=== PATIENT | female | born 1940 | race Caucasian/White ===

== ENCOUNTER 2017-04-16 00:40 | Day surgery (SDC) | payer MEDICARE, BC ==
[~2017-04-16] VITALS: Ht 165.1 cm; Wt 98.9 kg
[~2017-04-16 00:40] MED LIST: ALLO100T70 PO; ANAS1TAB35 PO; AZIT-1 PO; CALC600T72 PO; CEP500 PO; CHOL10005 PO; CHOL200022 PO; CHOL500045 PO; DAR100 PO; ERGO500014 PO; ERGO500037 PO; ESTR2TAB26 PO; EXE25PT PO; FLU45SYR25 IM ONLY; FUR40 PO; FURO-47 PO; IBUP1TAB90 PO; IBUP200C71 PO; IBUP200C72 PO; LETR2.5T4 PO; LEVO-85 PO; LEVO75TA73 PO; LOR5/325 PO; LORA-802 PO; LOSA100T67 PO; MULT-865 PO; MULTIVITAMIN; NAPR220C12 PO; OMEG-11 PO; PNEU0.5D3 IM; PRED-420 PO; PRED20TA6 PO; ROPI0.2527 PO; SPIR25TA78 PO; VALS160T20 PO; VENL37.514 PO; [UNRECOGNIZED DRUG - CODE] PO; [UNRECOGNIZED DRUG - CODE] PO
[2017-04-16] MEDS ORDERED: NORMOSOL R SOLN(*) 1000 ML BAG 1,000 ML IV PRN (12:00)
[2017-04-16] MEDS ORDERED: MIDAZOLAM 2 MG/2 ML VIAL IVP PRN (12:00)
[2017-04-16] MEDS ORDERED: FAMOTIDINE 20 MG TAB PO ONE (12:00)
[2017-04-16] MEDS ORDERED: LIDOCAINE/SOD BICARB 8.4% SYR ID ONE (12:00)
[2017-04-16] MEDS ORDERED: ROPIVACAINE 0.5% 20 ML VIAL ONE (14:20)
[2017-04-16] MEDS ORDERED: fentaNYL CITR 100 MCG/2 ML AMP ONE (14:58)
[2017-04-16] MEDS ORDERED: LIDOCAINE 2% IV 100 MG/5ML SYR ONE (14:59)
[2017-04-16] MEDS ORDERED: PROPOFOL EMUL(*) 10MG/ML 20 ML 20 ML ONE (14:59)
[2017-04-16 15:00] VITALS: BP 135/85
[2017-04-16] MEDS ORDERED: DEXAMETHASONE SOD 4 MG/ML VIAL ONE (16:09)
[2017-04-16] MEDS ORDERED: ONDANSETRON 4 MG/2 ML VIAL ONE (16:10)
--- NOTE | 2017-04-16 17:19 | EKG ---
FACILITY: [facility] PATIENT NAME: DAVID OSORIO : [id number] MR: [id number] V: [id number] EXAM DATE: ORDERING PHYSICIAN: SHAAN ORTIZ TECHNOLOGIST: Fernando Buckner Reason : PREOP Blood Pressure : / mmHG Vent. Rate : 087 BPM Atrial Rate : 087 BPM P-R Int : 156 ms QRS Dur : 092 ms QT Int : 360 ms P-R-T Axes : 033 -17 025 degrees QTc Int : 433 ms Normal sinus rhythm Septal infarct , age undetermined Inferior infarct , age undetermined Abnormal ECG When compared with ECG of 18-OCT-2015 08:27, [place] interval has decreased Inferior infarct is now present Confirmed by DELVIS MARCOS ([id number]) on 04/16/2017 8:00:57 PM Referred By: Confirmed By:DELVIS MARCOS
[2017-04-16] MEDS ORDERED: DOCU-416 PO (17:22)
[2017-04-16] MEDS ORDERED: OXYC-373 PO (17:22)
--- NOTE | 2017-04-16 17:27 | Short(Outpt) Discharge Summary ---
Discharge Summary Reason for Hosp/Final Diag: (1) Ganglion cyst of volar aspect of right wrist Status: Chronic Hospital Course & Plan: Right wrist ganglion cyst excised without problems. Departure Discharge to: Home, Self Care Discharge Instructions Home Meds Active Scripts Docusate Sodium (COLACE) 100 Mg Capsule, 1 CAP PO BID, #30 CAP 0 Refills TAKE WITH A FULL GLASS OF WATER Prov:SINAN ARREDONDO MD 04/16/17 Oxycodone Hcl/Acetaminophen (OXYCODONE-ACETAMINOPHEN 5-325) 1 Each Tablet, 1 TAB PO Q4H Y for PAIN, #15 TAB 0 Refills Prov:SINAN ARREDONDO MD 04/16/17 Losartan Potassium (LOSARTAN POTASSIUM) 100 Mg Tablet, 1 TAB PO QDAY, #90 TAB 3 Refills Prov:ANNAMARIE NEWTON MD 03/12/17 Anastrozole (ARIMIDEX) 1 Mg Tablet, 1 TAB PO QDAY, #30 TAB 9 Refills Prov:ANNAMARIE NEWTON MD 02/25/17 Allopurinol (ALLOPURINOL) 100 Mg Tablet, 1 TAB PO QDAY, #90 TAB 11 Refills Prov:ANNAMARIE NEWTON MD 09/14/16 Spironolactone (SPIRONOLACTONE) 25 Mg Tablet, 0.5 TAB PO QDAY, #30 TAB 3 Refills Prov:ANNAMARIE NEWTON MD 07/03/16 Levothyroxine Sodium (LEVOTHYROXINE SODIUM) 75 Mcg Tablet, 1 TAB PO QDAY, #90 TAB 3 Refills Prov:ANNAMARIE NEWTON MD 07/01/16 Ropinirole Hcl (REQUIP) 0.25 Mg Tablet, 1 TAB PO HS Y for restless leg symptoms , #90 TAB 4 Refills Prov:ANNAMARIE NEWTON MD 04/15/16 Reported Medications Ibuprofen/Diphenhydramine Cit (ADVIL PM CAPLET) 1 Each Tablet, 1 EACH PO QHS Y for PAIN 03/27/17 Naproxen Sodium (ALEVE) 220 Mg Capsule, 1 CAP PO QDAY, CAPSULE 03/27/17 Cholecalciferol (Vitamin D3) (VITAMIN D3) 3,000 Unit Tablet, 1 TAB PO QDAY 02/25/17 [place]-3 Fatty Acids/Fish Oil (FISH OIL 1,000 MG CAPSULE) 1 Each Capsule, 1 CAP PO QDAY 01/30/16 Furosemide (FUROSEMIDE) 40 Mg Tablet, 1 TAB PO DAILY Y for edema, TAB 03/30/14 Follow up Referrals: General Surgery - 05/04/17 @ Surgery, General with Sinan Arredondo Md You have a follow up appointment scheduled with Dr. Arredondo on 05/04/17, at 10:00am. Diet: Regular Activity: As Tolerated Special Instructions: Leave the right wrist splint on at all times other than while bathing. You can remove the brown wrap and the white surgical dressing on 04/18/17, then you can shower. After showering, leave the incision open to air but leave the steristrips in place until they fall off on their own and put the splint back on right away to immobilize your right wrist to minimize the chance of the ganglion cyst returning. Don't immerse the incision for 2 weeks. SINAN ARREDONDO MD Apr 16, 2017 17:27
--- NOTE | 2017-04-16 17:34 | Post Operative Progress Note ---
Post Operative Progress Note Date: Apr 16, 2017 Time: 17:27 Surgeon: Neeraj Dictation number: [id number] Anesthesia: LMA by Dr. Lopez Pre-Op Diagnosis: Right wrist ganglion cyst on volar aspect, radial side Post-Op Diagnosis: LARA Findings: C/W dx Procedure(s): Right wrist ganglion cyst excision Specimen Removed:(May be N/A): Right wrist ganglion cyst Complications: None Fluids: See anesthesia record Estimated Blood Loss: Minimal Date OP Note Dictated: Apr 16, 2017 Time OP Note Dictated: 17:28 SINAN ARREDONDO MD Apr 16, 2017 17:34
--- NOTE | 2017-04-16 19:41 | OPERATIVE REPORT 1 ---
EVENT DATE: April 16, 2017 SURGEON: Thom Pickard MD ANESTHESIOLOGIST: Thomas Lopez MD ANESTHESIA: LMA. PREOPERATIVE DIAGNOSIS Right volar wrist ganglion cyst. POSTOPERATIVE DIAGNOSIS Right volar wrist ganglion cyst. PROCEDURE PERFORMED Right volar wrist ganglion cyst excision. COMPLICATIONS None. CONDITION Stable. BLOOD LOSS Minimal. INDICATIONS This is a 76-year-old female who presented to my office with a lump on the volar aspect of her right wrist on the radial side. Exam was consistent with a ganglion cyst. We discussed options including observation versus aspiration versus steroid injection versus excision. After explaining the risks and benefits and risk of recurrence of each of these options, she elected to proceed with excision of the cyst. DESCRIPTION OF PROCEDURE The patient was brought to the operating room and placed supine on the operating table. LMA anesthesia was administered, and her right hand and arm were prepped and draped in a sterile fashion. A timeout was completed. I injected the skin overlying the cyst with 0.5% ropivacaine plain. I made a longitudinally oriented incision on the volar aspect of her wrist on the radial side just over the cyst and dissected through the dermis and into the subcutaneous tissues. I then continued my dissection mainly with scissors and identified the cyst and dissected completely around the cyst until I had the neck isolated. I then clamped the neck, used a knife to remove the cyst, and this was passed off the field. I then used a 3-0 Vicryl to ligate the neck without any problems. I did use the tourniquet during this procedure, and it was up for 14 minutes. After releasing the tourniquet, there was no bleeding. She had a good radial pulse, and the wound looked good. I then closed the wound with 3-0 Vicryl interrupted deep dermal sutures and 4-0 Monocryl running subcuticular sutures. The skin was cleaned and dried, and Steri-Strips were applied, followed by a sterile surgical dressing. Then, her wrist was wrapped in [place], and she was placed in a wrist splint. She was awakened, and LMA was removed. She was transported to the recovery room in stable condition having tolerated the procedure without any apparent problems. JEANNE
== END 2017-04-16 18:05 | disposition home or self-care (01) ==
LOC: OR 00:40
PROVIDERS: ATTEND Surgery
DX: M67.431 Ganglion, right wrist (principal); I10 Essential (primary) hypertension
CPT/HCPCS: 25111; 36415; 93005; A9270; J1100; J2001; J2405; J2704; J2795; J3010; 82310; 82374; 82435; 82565; 82947; 84132; 84295; 84520; 88304; L3908

== ENCOUNTER 2017-06-12 09:57 | Outpatient (RCR) | payer MEDICARE, BC ==
[2017-06-04 10:31] VITALS: BP 150/105
[2017-06-04 10:41] LABS: PLATELET COUNT, AUTOMATED 196 K/uL (150-450)
[~2017-06-12 09:57] MED LIST changes: +DOCU-416 PO; +OXYC-373 PO
[2017-06-12 10:02] VITALS: BP 157/78
--- NOTE | 2017-06-14 08:55 | [facility] ONCOLOGY NOTE ---
EVENT DATE: June 12, 2017 DIAGNOSES 1. Left breast cancer. 2. Hypothyroidism. 3. Hypertension. 4. Hyperlipidemia. 5. Gout. 6. Osteoarthritis. CHIEF COMPLAINT The patient is here today for followup of her left breast cancer. ONCOLOGY HISTORY The patient is a 76-year-old postmenopausal woman. PRESENTATION Abnormal screening mammogram. DIAGNOSTIC EVALUATION Ultrasound of the left breast done on September 19, 2015 did show 7.5 mm hypoechoic space-occupying lesion nearly at 10 o'clock position of the left breast. PROCEDURES 1. Ultrasound guided left breast mass biopsy done on September 25, 2015 came back positive for infiltrating ductal carcinoma, grade II/III. 2. Wire localization lumpectomy and left sentinel lymph node biopsy done October by Dr. Jauregui. PATHOLOGY Positive for 1 cm infiltrating ductal carcinoma, grade II/III with three negative sentinel lymph nodes. ER 99.5% positive, NV 99.1% positive, HER2/rhett negative by immunohistochemistry (1+). Ki-67 was low at 5.5%. p53 was also low at 0.8%. TREATMENT The patient started treatment with adjuvant hormonal therapy with letrozole 2.5 mg daily on November 09, 2015. The patient stopped letrozole in June 2006 because of side effects including severe pain in her small joints of the hands, and she started anastrozole 1 mg daily on July 14, 2016. The patient stopped anastrozole on June 12, 2017. HISTORY OF PRESENT ILLNESS Patient is here today for followup of her left breast cancer. She is complaining of stiffness in her joints all over and weight gain. She had also hot flashes. She is weak, tired and fatigued. PAST MEDICAL HISTORY 1. Hypertension. 2. Hyperlipidemia. 3. Osteoarthritis. 4. Gout. 5. Hypothyroidism. 6. Vitamin D deficiency. PAST SURGICAL HISTORY 1. In 1981 she had bilateral hysterectomy. 2. In 1991 she had back surgery. 3. In 1996 she had plantar fasciitis, right foot, surgery. 4. In 2005 she had left knee arthroplasty. 5. In October 2012, she had cataract, right eye. 6. In November 2012, she had cataract of left eye. 7. On October 05, 2015 she had ultrasound guided left breast biopsy. SOCIAL HISTORY The patient is with two sons. 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 She drinks wine and scotch occasionally. Denies any abuse of tobacco or illicit drugs. FAMILY HISTORY Negative for cancer or blood diseases. CURRENT MEDICATIONS 1. Advil at night for pain. 2. Losartan 100 mg in the morning. 3. Estradiol 2 mg in the morning. The patient was advised to quit. 4. Lasix 40 mg as needed. 5. Levothyroxine 75 mcg daily. 6. Spironolactone 25 mg half pill in the morning. 7. Tamoxifen 20 mg daily. 8. Vitamin D 5000 units daily. ALLERGIES SULFA, which causes hives. REVIEW OF SYSTEMS CONSTITUTIONAL: Patient has hot flashes. HEENT: Ears: No tinnitus or hearing problem. Nose: No nasal discharge or epistaxis. Throat: No sore throat or mouth ulcers. Eyes: No diplopia or visual changes. RESPIRATORY: No shortness of breath. No cough, expectoration or hemoptysis. CARDIOVASCULAR: No chest pain, orthopnea, or paroxysmal nocturnal dyspnea (PND) . No edema. No palpitations. GASTROINTESTINAL: No nausea or vomiting. No diarrhea or constipation. No change in bowel movements. No heartburn or swallowing difficulties. No abdominal pain. No jaundice. No hematemesis, melena or rectal bleeding. GENITOURINARY: No hematuria or dysuria. MUSCULOSKELETAL: She has stiffness all over her joints. NEUROLOGICAL: No tingling or numbness in the hands or feet. No headaches or convulsions. HEMATOLOGIC/LYMPHATIC: She is weak, tired and fatigued. SKIN: No skin rash or lumps. PSYCHIATRIC: No anxiety or depression. PHYSICAL EXAMINATION GENERAL: Looks stable. Well-developed, well-nourished, and in no acute distress. VITAL SIGNS: Blood pressure 157/78, pulse 75 per minute, respirations 16 per minute, temperature 97.2, pulse oximetry 93% on room air. HEENT: Head: Atraumatic. No sinus tenderness to palpation. Eyes: No icterus or conjunctivitis. Mouth and throat: No oral thrush or mucositis. NECK: Supple. No cervical or supraclavicular lymphadenopathy. LUNGS: Clear to auscultation and percussion bilaterally. HEART: Regular rate and rhythm. No gallops, murmurs, clicks or rubs. ABDOMEN: Soft and lax. No tenderness. No hepatosplenomegaly. No masses. EXTREMITIES: No cyanosis, clubbing or edema. LYMPHATICS: No peripheral lymphadenopathy. NEUROLOGICAL: Conscious, alert and oriented times three. No focal motor or sensory deficits. PSYCHIATRIC: Mood and affect appear normal. SKIN: No skin rash, bruise or purpuric eruption. DIAGNOSTIC/LABORATORY STUDIES CBC showed white count 4900, hemoglobin 15.4, hematocrit 46.3, platelets 196, 000. Chem panel totally normal. CEA is 3, which is normal. CA 15-3 is 45, CA 27-29 is 62.9, which is up from 59.4. ASSESSMENT 1. Stage IA (pT1 pN0 cM0) left breast infiltrating ductal carcinoma status post wide localization lumpectomy and left sentinel lymph node biopsy done October 19, 2015 for 1 cm invasive ductal carcinoma grade 2/3. Three sentinel lymph nodes were negative for metastasis. ER/NV positive, HER2/rhett negative by immunohistochemistry. Ki-67 was low at 5.5% and p53 was low at 0.8%. Patient started treatment with Letrozole November 09, 2015, which was stopped on June 12, 2016 because of the side effect of pain and stiffness in the small joints of the hands. Patient could not afford [employer] for co-payment and started treatment with anastrazole, Arimidex 1 mg daily July 14, 2016. Again she is complaining of stiffness all over her joints. She has also weight gain and hot flashes, and for this reason, Arimidex is stopped on June 12, 2017. I asked the patient to start Tamoxifen 20 mg daily in two weeks from now so the patient can get some relief from her joint stiffness and pain, so the patient will start Tamoxifen 20 mg daily on June 26, 2017. I am planning to see her in three months again with CBC, chem panel, CEA, CA 27-29 and CA 15-3. 2. Vitamin D deficiency. Patient currently on vitamin D supplement 3000 international units daily. Continue the same dose. 3. Osteopenia of the left femoral neck. Patient currently on calcium with vitamin D supplement. Will repeat her DEXA scan every two years. 4. Hypothyroidism with treatment. 5. Hypertension on treatment. 6. Gout on prednisone and colchicine. 7. Osteoarthritis. PLAN 1. Stop anastrazole. 2. Start Tamoxifen in two weeks, 20 mg daily. 3. Patient to return in three months with CBC, chem panel, CEA, CA 27-29 and CA 15-3. 4. Patient is to contact us for any new concerns or complaints. [facility]
[2017-06-15] MEDS ORDERED: IBUP1TAB90 PO (08:45)
[2017-06-26] MEDS ORDERED: TAMO20TA24 PO (10:55)
[2017-07-06] MEDS ORDERED: SPIR25TA78 PO (12:10)
== END 2017-07-08 15:04 | disposition home or self-care (01) ==
LOC: ONC 09:57
PROVIDERS: ATTEND Radiology Radiation Oncology
DX: C50.212 Malignant neoplasm of upper-inner quadrant of left female breast (principal); E55.9 Vitamin D deficiency, unspecified; M85.88 Other specified disorders of bone density and structure, other site; E03.9 Hypothyroidism, unspecified; I10 Essential (primary) hypertension; M10.9 Gout, unspecified; R53.1 Weakness; R53.83 Other fatigue; Z17.0 Estrogen receptor positive status [ER+]
CPT/HCPCS: 36415; 82306; 82378; 85025; 86300; G0463; 82040; 82247; 82310; 82374; 82435; 82565; 82947; 84075; 84132; 84155; 84295; 84450; 84460; 84520; 99212

== ENCOUNTER → 2017-06-30 | Outpatient (CLI) | payer MEDICARE, BC ==
[~2017-06-30] MED LIST changes: +TAMO20TA24 PO
--- NOTE | 2017-07-01 19:02 | RADIOLOGY IMAGING REPORT ---
FACILITY: [facility] PATIENT NAME: DAVID OSORIO : [id number] MR: [id number] V: [id number] EXAM DATE: ORDERING PHYSICIAN: ROSAMARIA PEREZ TECHNOLOGIST: Zaida Arcos EXAMINATION:TWO-DIMENSIONAL ECHOCARDIOGRAPH REASON: HEART MURMUR AND HYPERTENSION 2D Measurements (normal values in centimeters) LV endLV endRV endVent.LV PostAorticLeftPercent DiastolicSystolicDiastolicSeptumWallRootAtriumShortening (3.5-5.7)(0.9-2.6)(0.6-1.1)(0.6-1.1)(2.0-3.7)(1.9-4.0)(25-35%) [id number]% STROKE VOLUME: 40ml ESTIMATED EJECTION FRACTION: 70% PARASTERNAL LONG AXIS: Is somewhat technically difficult but overall left ventricular systolic function does appear to be normal. Color examination of the valves revealed a trace of mitral and aortic insufficiency in this view. No wall motion abnormalities are noted. Right ventricle appears to be mildly enlarged. Other chamber sizes are normal. PARASTERNAL SHORT AXIS: Very technically difficult echocardiograph the overall left ventricle systolic function appears to be normal. Aortic valve is probably trileaflet in configuration although it was hard to delineate the entire structure. Definity contrast was used and left ventricle systolic function is normal. APICAL FOUR AND TWO CHAMBER: There again technically difficult but Definity contrast was used. No wall motion abnormalities are noted. The overall left ventricle systolic function appears to be normal. Aortic valve area and mitral valve area both measure within normal ranges of 2.4 and 2.2cm2 respectively. The left atrial and right atrial volumes are measured within normal range of 27 and 13ml/m2. Tricuspid regurgitation Vmax measured 2.96m/sec with estimated right atrial pressure 3mm Hg. Doppler examination of the mitral valve in diastole does reveal the A wave > E wave. IVC is normal in size at 1.96cm. SUBCOSTAL VIEW: OVERALL IMPRESSION: 1. Normal left ventricular ejection fraction approximately 70% with a mild decrease in diastolic function. 2. Mild somewhat asymmetric left ventricular thickening more along the posterior wall but no evidence for any outflow tract obstruction. 3. A trileaflet aortic valve with a trace of aortic insufficiency. 4. A trace of mitral and tricuspid insufficiency. Estimated right ventricular systolic pressures are slightly increased at 38mm Hg which does include an estimated right atrial pressure of 3mm Hg indicating mild pulmonary hypertension and increased right ventricular systolic pressures. No other abnormalities were noted Dictated by: Raquel Smyth M.D. on 07/01/2017 at 10:25 Transcribed by: LAUREN on 07/01/2017 at 13:02 Approved by: Raquel Smyth M.D. on 07/01/2017 at 19:01 [facility]
== END ==
LOC: US 06-24 01:12
PROVIDERS: ATTEND Nurse Practitioner Primary Care
DX: I50.30 Unspecified diastolic (congestive) heart failure (principal); I51.7 Cardiomegaly; I35.1 Nonrheumatic aortic (valve) insufficiency; I34.0 Nonrheumatic mitral (valve) insufficiency; I07.1 Rheumatic tricuspid insufficiency; I27.20 Pulmonary hypertension, unspecified
CPT/HCPCS: 93306

== ENCOUNTER → 2017-09-14 | Outpatient (CLI) | payer MEDICARE, BC | LOC: SPU 10:49 | PROVIDERS: ATTEND Family Medicine | DX: E03.9 Hypothyroidism, unspecified (principal) | CPT/HCPCS: 84443 ==

== ENCOUNTER 2017-09-18 10:00 | Outpatient (RCR) | payer MEDICARE, BC ==
[2017-09-14 11:08] LABS: PLATELET COUNT, AUTOMATED 166 K/uL (150-450)
[2017-09-18 10:04] VITALS: BP 151/77
[2017-09-18] MEDS ORDERED: ACET500T68 PO (10:06)
--- NOTE | 2017-09-18 15:59 | ONCOLOGY FOLLOW UP NOTE ---
EVENT DATE: September 18, 2017 DIAGNOSES 1. Left breast cancer. 2. Hypothyroidism. 3. Hypertension. 4. Hyperlipidemia. 5. Gout. 6. Osteoarthritis. CHIEF COMPLAINT The patient is here today for followup of her left breast cancer. ONCOLOGY HISTORY The patient is a 76-year-old postmenopausal woman. PRESENTATION Abnormal screening mammogram. DIAGNOSTIC EVALUATION Ultrasound of the left breast done on September 19, 2015 did show 7.5 mm hypoechoic space-occupying lesion nearly at 10 o'clock position of the left breast. PROCEDURES 1. Ultrasound guided left breast mass biopsy done on September 25, 2015 came back positive for infiltrating ductal carcinoma, grade II/III. 2. Wire localization lumpectomy and left sentinel lymph node biopsy done October by Dr. Jauregui. PATHOLOGY Positive for 1 cm infiltrating ductal carcinoma, grade II/III with three negative sentinel lymph nodes. ER 99.5% positive, MA 99.1% positive, HER2/rhett negative by immunohistochemistry (1+). Ki-67 was low at 5.5%. p53 was also low at 0.8%. TREATMENT 1. The patient started treatment with adjuvant hormonal therapy with letrozole 2.5 mg daily on November 09, 2015. 2. The patient stopped letrozole in June 2006 because of side effects including severe pain in her small joints of the hands, and she started anastrozole 1 mg daily on July 14, 2016. The patient stopped anastrozole on June 12, 2017. 3. Patient started treatment with tamoxifen 20 mg daily on June 12, 2017. HISTORY OF PRESENT ILLNESS Patient is here today for followup of her left breast cancer on adjuvant hormonal therapy with tamoxifen. She is complaining of gaining weight after she started tamoxifen. She has generalized joint pains, especially the ankles and hands. She is weak and tired constantly. PAST MEDICAL HISTORY 1. Hypertension. 2. Hyperlipidemia. 3. Osteoarthritis. 4. Gout. 5. Hypothyroidism. 6. Vitamin D deficiency. PAST SURGICAL HISTORY 1. In 1981 she had bilateral hysterectomy. 2. In 1991 she had back surgery. 3. In 1996 she had plantar fasciitis, right foot, surgery. 4. In 2005 she had left knee arthroplasty. 5. In October 2012, she had cataract, right eye. 6. In November 2012, she had cataract of left eye. 7. On October 05, 2015 she had ultrasound guided left breast biopsy. SOCIAL HISTORY The patient is with two sons. 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 She drinks wine and scotch occasionally. Denies any abuse of tobacco or illicit drugs. FAMILY HISTORY Negative for cancer or blood diseases. CURRENT MEDICATIONS 1. Advil at night for pain. 2. Losartan 100 mg in the morning. 3. Estradiol 2 mg in the morning. The patient was advised to quit. 4. Lasix 40 mg as needed. 5. Levothyroxine 75 mcg daily. 6. Spironolactone 25 mg half pill in the morning. 7. Tamoxifen 20 mg daily. 8. Vitamin D 5000 units daily. ALLERGIES SULFA, which causes hives. REVIEW OF SYSTEMS CONSTITUTIONAL: She is gaining weight. HEENT: Ears: No tinnitus or hearing problem. Nose: No nasal discharge or epistaxis. Throat: No sore throat or mouth ulcers. Eyes: No diplopia or visual changes. RESPIRATORY: No shortness of breath. No cough, expectoration or hemoptysis. CARDIOVASCULAR: No chest pain, orthopnea, or paroxysmal nocturnal dyspnea (PND) . No edema. No palpitations. GASTROINTESTINAL: No nausea or vomiting. No diarrhea or constipation. No change in bowel movements. No heartburn or swallowing difficulties. No abdominal pain. No jaundice. No hematemesis, melena or rectal bleeding. GENITOURINARY: No hematuria or dysuria. MUSCULOSKELETAL: She has generalized arthritis, especially the ankles and hands. NEUROLOGICAL: No tingling or numbness in the hands or feet. No headaches or convulsions. HEMATOLOGIC/LYMPHATIC: She is weak, tired and fatigued most of the time. SKIN: No skin rash or lumps. PSYCHIATRIC: No anxiety or depression. PHYSICAL EXAMINATION GENERAL: Looks stable. Well-developed, well-nourished, and in no acute distress. VITAL SIGNS: Blood pressure 151/77, pulse 81 per minute, respirations 16 per minute, temperature 97.3, pulse oximetry 90% on room air. HEENT: Head: Atraumatic. No sinus tenderness to palpation. Eyes: No icterus or conjunctivitis. Mouth and throat: No oral thrush or mucositis. NECK: Supple. No cervical or supraclavicular lymphadenopathy. LUNGS: Clear to auscultation and percussion bilaterally. HEART: Regular rate and rhythm. No gallops, murmurs, clicks or rubs. ABDOMEN: Soft and lax. No tenderness. No hepatosplenomegaly. No masses. EXTREMITIES: No cyanosis, clubbing or edema. LYMPHATICS: No peripheral lymphadenopathy. NEUROLOGICAL: Conscious, alert and oriented times three. No focal motor or sensory deficits. PSYCHIATRIC: Mood and affect appear normal. SKIN: No skin rash, bruise or purpuric eruption. DIAGNOSTIC/LABORATORY STUDIES CBC showed white count 3.9, hemoglobin 15.1, hematocrit 44.3, platelets 166, 000. ANC is 1.6. Chem panel totally normal except carbon dioxide 21. CEA is 3.3. CA 15-3 is 43 which is down from 45, CA 27-29 is 48.9 which is down from 65.9. ASSESSMENT 1. Stage IA (pT1 pN0 cM0) left breast infiltrating ductal carcinoma status post wide localization lumpectomy and sentinel lymph node biopsy done October 19, 2015 for 1 cm invasive ductal carcinoma grade 2/3. Three sentinel lymph nodes were negative for metastasis. ER/MA positive, HER2/rhett negative by immunohistochemistry. Ki-67 was low at 5.5% and p53 was low at 0.8%. Patient started treatment with Letrozole November 09, 2015, which was stopped on June 12, 2016 because of the side effects of pain and stiffness in the small joints of the hands. Patient could not afford Aromasin for co-payment and started treatment with anastrazole, Arimidex 1 mg daily July 14, 2016. Again she complained of stiffness of all her joints. She also had weight gain and hot flashes, and for this reason, Arimidex was stopped on June 12, 2017. The patient started Tamoxifen 20 mg daily after that, and she is tolerating it better, but unfortunately she continues to gain weight and she started tamoxifen on June 26, 2017. Patient is followed by her primary care provider for weight gain, and she had a consultation with the dietitian and physical therapist. I am planning to continue followup. I will see her in three months with CBC, chem panel, CEA, CA 27-29 and CA 15-3. Her tumor markers with CA 15- 3 and CA 27-29 are going down, and I will continue to monitor them in the future. 2. Vitamin D deficiency. Patient currently on vitamin D supplement 3000 international units daily. Continue the same dose. 3. Osteopenia of the left femoral neck, currently on vitamin D supplement. Consider repeat DEXA scan every two years. 4. Hypothyroidism on treatment. 5. Hypertension on treatment. 6. Gout on prednisone and colchicine. 7. Osteoarthritis. PLAN 1. Continue tamoxifen 20 mg daily. 2. Patient to return in three months with CBC, chem panel, CEA, CA 27-29 and CA 15-3. 3. Patient is to contact us for any new concerns or complaints. MTDD
[2017-09-23] MEDS ORDERED: LEVO75TA73 PO (11:45)
== END 2017-09-22 10:14 | disposition home or self-care (01) ==
LOC: ONC 10:00
PROVIDERS: ATTEND Radiology Radiation Oncology
DX: C50.212 Malignant neoplasm of upper-inner quadrant of left female breast (principal); Z17.0 Estrogen receptor positive status [ER+]; Z78.0 Asymptomatic menopausal state; Z79.810 Long term (current) use of selective estrogen receptor modulators (SERMs); E55.9 Vitamin D deficiency, unspecified; M85.88 Other specified disorders of bone density and structure, other site; E03.9 Hypothyroidism, unspecified; I10 Essential (primary) hypertension; M10.9 Gout, unspecified; M19.90 Unspecified osteoarthritis, unspecified site; Z79.899 Other long term (current) drug therapy; R53.1 Weakness; R53.83 Other fatigue
CPT/HCPCS: 36415; 82378; 85025; 86300; G0463; 82040; 82247; 82310; 82374; 82435; 82565; 82947; 84075; 84132; 84155; 84295; 84443; 84450; 84460; 84520; 99212

== ENCOUNTER → 2017-10-13 | Outpatient (CLI) | payer MEDICARE, BC ==
[~2017-10-13] MED LIST changes: +ACET500T68 PO; +DICL100G39 TOP
--- NOTE | 2017-10-13 15:32 | RADIOLOGY IMAGING REPORT ---
FACILITY: [facility] PATIENT NAME: DAVID OSORIO : [id number] MR: [id number]: [id number] EXAM DATE: ORDERING PHYSICIAN: JAYSON HOLLIS TECHNOLOGIST: Tessie Rivas PROCEDURE:BILATERAL DIAGNOSTIC DIGITAL MAMMOGRAM WITH CAD ASSISTED INTERPRETATION & 3D TOMOSYNTHESIS COMPARISON:Prior mammograms 09/26/16, 03/27/16, 09/19/15, 09/13/15. INDICATIONS:hx Breast Cancer-less then 2 years ago FINDINGS: Moderately dense fibroglandular tissue is seen throughout the breasts. The parenchymal pattern has remained stable allowing for difference in mammographic technique & patient positioning. Area of postsurgical scaring in the upper medial Left breast is again seen from prior lumpectomy. There is no evidence of malignant appearing mass, malignant appearing calcifications or other secondary sign of malignancy in either breast. DIAGNOSTIC CATEGORY 2--BENIGN FINDING. RECOMMENDATIONS: ROUTINE MAMMOGRAM AND CLINICAL EVALUATION. IMPRESSION: BIRADS 2: Benign finding. No significant abnormality is seen at this time. Dictated by: Breanna Bhatti M.D. on 10/13/2017 at 14:25 Transcribed by: LAUREN on 10/13/2017 at 14:48 Approved by: Breanna Bhatti M.D. on 10/13/2017 at 15:31 [facility]
== END ==
LOC: MAMO 01:13
PROVIDERS: ATTEND Family Medicine
DX: Z85.3 Personal history of malignant neoplasm of breast (principal)
CPT/HCPCS: 77062; 77066

== ENCOUNTER 2017-11-26 10:30 | Outpatient (RCR) | payer MEDICARE, BC ==
--- NOTE | 2017-09-09 15:52 | PT INITIAL EVALUATION ---
MEDICAL DIAGNOSIS: Right Shoulder Pain, Bilateral Ankle Pain TREATMENT DIAGNOSIS: Right Shoulder Subscapularis Strain, Bilateral Ankle Pain DATE OF ONSET: 09/09/17 SUBJECTIVE: Funmi is a 76 year old female presenting to physical therapy following gradual onset of R shoulder pain following 2016. Pt reports that the shoulder was getting better for a bit but recently with increased lifting it seems to be worse again. Pt reports that pain is worst at 7 /10 with sharp pain on the anterior shoulder shooting into the deltoid region. Pain is worse with pushing, lifting anything heavy and with abduction. Shoulder pain at rest is rated as 0/10, but pt reports that it does get achy at night at 4-5/10 and can keep her awake. Additionally, pt reports a longterm history of ankle pain related to arthritis. Pt reports that the ankles really hurt following prolonged walking such as shopping. Pain in the ankle is 0/10 at rest currently. REHAB PROBLEM LIST: Increased Pain Decreased ROM Decreased Strength Decreased Endurance Decreased Function Decreased ADL's Decreased Mobility Decreased Gait PREVIOUS MEDICAL HISTORY: See EMR OCCUPATION: Homemaker OBJECTIVE: Pt is L handed ROM: Ankle AROM: Painful in end ranges Shoulder AROM: Flexion: L 126, R 98, Abd: L 145, R 92 with pain, ER: L 80, R 55 with pain, IR: L T6, R L2 level with pain. Strength: Shoulder MMT: 5/5 B in all motions excluding R IR at 4/5 with pain. Palpation: Pt is tender to palpation along the anterior shoulder supraspinatus tendon. Sensation: Pt denies any change in sensation in the R arm. Special Tests: Empty Can, IR lift off, Drop arm (-), Painful Arc (+) Other Objective Findings: Quick DASH disability score: 36% ASSESSMENT: Funmi show signs and symptoms consistent with R shoulder subscapularis strain, and generalized ankle arthritis bilaterally as outlined in the above deficits resulting in decreased mobility and function with ADL's. Physical therapy is indicated for this patient to return pt to prior level of function with improved mobility in ADL's and recreational activities. Short Term Goals In 3 weeks pt will increase AROM to equal to that of the contralateral shoulder for improved mobility with ADL's. In 6 weeks pt will improve ankle strength to 5/5 B in all major planes for improved support with ambulation. In 6 weeks pt will increase IR strength to 5/5 without pain for improved function with ADL's. In 6 weeks pt will improve Quick DASH score to < 19% impairment for improved function with ADL's. Patient's Goals Decrease shoulder pain and improve function with lifting and pushing. Decrease ankle pain with walking. PLAN: Patient to be seen for Manual Therapy/STM/MET Strengthening/condition Ice/Heat Range of Motion Spinal Stabilization Ultrasound Stretching Iontophoresis Neuromuscular Re-ed Closed Chain Program Electrical Stim Posture/Body mechanics Gait Trg/Balance Trg Biofeedback Home Exercise Program Mech./Manual Traction Therapeutic Activities Pelvic Floor 3x/Week for 6 Weeks If you have any questions, comments, or concerns about this report or plan, please contact me at . Thank you, Keisha Lorenz, PT, DPT, CLT MTDD
--- NOTE | 2017-10-30 16:53 | PT PLAN OF CARE ---
Physician: Shamika Clark MD Patient is being seen: 2-3x/Week Therapist: Keisha Lorenz, PT, DPT, CLT Medical Diagnosis: Right Shoulder Pain, Bilateral Ankle Pain Treatment Diagnosis: Right Shoulder Subscapularis Strain, Bilateral Ankle Pain Date of Onset: 09/09/17 Date of Initial Evaluation: 09/09/17 Date patient was last seen: 10/29/17 Number of treatments: 10 Number of cancellations/No shows: 2 INTERVENTIONS: Manual Therapy/STM/MET Strengthening/condition Ice/Heat Range of Motion Spinal Stabilization Ultrasound Stretching Iontophoresis Neuromuscular Re-ed Closed Chain Program Electrical Stim Posture/Body mechanics Gait Trg/Balance Trg Biofeedback Home Exercise Program Mech./Manual Traction Therapeutic Activities Pelvic Floor GOALS: In 3 weeks pt will increase AROM to equal to that of the contralateral shoulder for improved mobility with ADL's. In Progress In 6 weeks pt will improve ankle strength to 5/5 B in all major planes for improved support with ambulation. In Progress In 6 weeks pt will increase IR strength to 5/5 without pain for improved function with ADL's. In Progress In 6 weeks pt will improve QuickDASH score to < 19% impairment for improved function with ADL's. In Progress PATIENT'S GOAL: Decrease shoulder pain and improve function with lifting and pushing. Decrease ankle pain with walking. Status of Patient's Goals: In Progress Patient Compliance: Good Prognosis: Good Reasons for continuing therapy: Pat shows increase functional strength and mobility with pt able to perform increased community ambulation without pain in the ankle for up to 1.5 miles. Painful arc persists in the R shoulder. However, ROM prior to pain shows improvements and pt shows improved strength in all planes. Further PT is indicated to improve pt stability with ambulation on uneven surfaces as well as further improve R shoulder ROM and strength without pain. OBJECTIVE: Pt is L handed ROM: Ankle AROM: Painful in end ranges Shoulder AROM: Flexion: L 126, R 114, Abd: L 145, R 98 with pain, ER: L 80, R 75 with pain, IR: L T6, R L2 level with pain. Strength: Shoulder MMT: 5/5 B in all motions excluding R IR and flexion at 4+/5. Ankle MMT: PF 4/5 B, DF 5/5 B Palpation: Pt is tender to palpation along the anterior shoulder supraspinatus tendon. Sensation: Pt denies any change in sensation in the R arm. Special Tests: Empty Can, IR lift off, Drop arm (-), Painful Arc (+) Other Objective Findings: Quick DASH disability score: 27.3% If you have any questions or concerns, please feel free to contact me at [phone]. Thank you, Keisha Lorenz, PT, DPT, CLT MTDD
[~2017-11-26 10:30] MED LIST changes: +ANAS1TAB12 PO; -ANAS1TAB35 PO; +IBUP-136 PO; -IBUP200C71 PO; -SPIR25TA78 PO; +SPIR25TA80 PO
== END 2017-12-08 ==
LOC: PT 10:30
PROVIDERS: ATTEND Family Medicine
DX: M25.511 Pain in right shoulder (principal); M25.571 Pain in right ankle and joints of right foot; M25.572 Pain in left ankle and joints of left foot
CPT/HCPCS: 97162

== ENCOUNTER 2017-12-24 10:29 | Outpatient (RCR) | payer MEDICARE, BC ==
[2017-12-16 10:17] VITALS: BP 135/116
[2017-12-16 10:42] LABS: PLATELET COUNT, AUTOMATED 185 K/uL (150-450)
[2017-12-18 10:06] VITALS: BP 163/86
--- NOTE | 2017-12-18 17:06 | ONCOLOGY FOLLOW UP NOTE ---
EVENT DATE: December 18, 2017 DIAGNOSES 1. Left breast cancer. 2. Hypothyroidism. 3. Hypertension. 4. Hyperlipidemia. 5. Gout. 6. Osteoarthritis. CHIEF COMPLAINT The patient is here today for followup of her left breast cancer. ONCOLOGY HISTORY The patient is a 77-year-old postmenopausal woman. PRESENTATION Abnormal screening mammogram. DIAGNOSTIC EVALUATION Ultrasound of the left breast done on September 19, 2015 did show 7.5 mm hypoechoic space-occupying lesion nearly at 10 o'clock position of the left breast. PROCEDURES 1. Ultrasound guided left breast mass biopsy done on September 25, 2015 came back positive for infiltrating ductal carcinoma, grade II/III. 2. Wire localization lumpectomy and left sentinel lymph node biopsy done October 19, [address] Jauregui. PATHOLOGY Positive for 1 cm infiltrating ductal carcinoma, grade II/III with three negative sentinel lymph nodes. ER 99.5% positive, MA 99.1% positive, HER2/rhett negative by immunohistochemistry (1+). Ki-67 was low at 5.5%. p53 was also low at 0.8%. TREATMENT 1. The patient started treatment with adjuvant hormonal therapy with letrozole 2.5 mg daily on November 09, 2015. 2. The patient stopped letrozole in June 2006 because of side effects including severe pain in her small joints of the hands, and she started anastrozole 1 mg daily on July 14, 2016. The patient stopped anastrozole on June 12, 2017. 3. Patient started treatment with tamoxifen 20 mg daily on June 12, 2017. HISTORY OF PRESENT ILLNESS Patient is here today for followup of her left breast cancer. She is complaining of hot flashes. She has also generalized joint aches all over her body, but other than that she is really feeling very well in herself. PAST MEDICAL HISTORY 1. Hypertension. 2. Hyperlipidemia. 3. Osteoarthritis. 4. Gout. 5. Hypothyroidism. 6. Vitamin D deficiency. PAST SURGICAL HISTORY 1. In 1981 she had bilateral hysterectomy. 2. In 1991 she had back surgery. 3. In 1996 she had plantar fasciitis, right foot, surgery. 4. In 2005 she had left knee arthroplasty. 5. In October 2012, she had cataract, right eye. 6. In November 2012, she had cataract of left eye. 7. On October 05, 2015 she had ultrasound guided left breast biopsy. SOCIAL HISTORY The patient is with two sons. 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 She drinks wine and scotch occasionally. Denies any abuse of tobacco or illicit drugs. FAMILY HISTORY Negative for cancer or blood diseases. CURRENT MEDICATIONS 1. Advil at night for pain. 2. Losartan 100 mg in the morning. 3. Estradiol 2 mg in the morning. The patient was advised to quit. 4. Lasix 40 mg as needed. 5. Levothyroxine 75 mcg daily. 6. Spironolactone 25 mg half pill in the morning. 7. Tamoxifen 20 mg daily. 8. Vitamin D 5000 units daily. ALLERGIES SULFA, which causes hives. REVIEW OF SYSTEMS CONSTITUTIONAL: She has hot flashes. HEENT: Ears: No tinnitus or hearing problem. Nose: No nasal discharge or epistaxis. Throat: No sore throat or mouth ulcers. Eyes: No diplopia or visual changes. RESPIRATORY: No shortness of breath. No cough, expectoration or hemoptysis. CARDIOVASCULAR: No chest pain, orthopnea, or paroxysmal nocturnal dyspnea (PND). No edema. No palpitations. GASTROINTESTINAL: No nausea or vomiting. No diarrhea or constipation. No change in bowel movements. No heartburn or swallowing difficulties. No abdominal pain. No jaundice. No hematemesis, melena or rectal bleeding. GENITOURINARY: No hematuria or dysuria. MUSCULOSKELETAL: She has generalized joint aches all over her body. NEUROLOGICAL: No tingling or numbness in the hands or feet. No headaches or convulsions. HEMATOLOGIC/LYMPHATIC: She is weak, tired and fatigued most of the time. SKIN: No skin rash or lumps. PSYCHIATRIC: No anxiety or depression. PHYSICAL EXAMINATION GENERAL: Looks stable. Well-developed, well-nourished, and in no acute distress. VITAL SIGNS: Blood pressure 163/86, pulse 75 per minute, respirations 18 per minute, temperature 96.8, pulse oximetry 90% on room air. HEENT: Head: Atraumatic. No sinus tenderness to palpation. Eyes: No icterus or conjunctivitis. Mouth and throat: No oral thrush or mucositis. NECK: Supple. No cervical or supraclavicular lymphadenopathy. LUNGS: Clear to auscultation and percussion bilaterally. HEART: Regular rate and rhythm. No gallops, murmurs, clicks or rubs. ABDOMEN: Soft and lax. No tenderness. No hepatosplenomegaly. No masses. EXTREMITIES: No cyanosis, clubbing or edema. LYMPHATICS: No peripheral lymphadenopathy. NEUROLOGICAL: Conscious, alert and oriented times three. No focal motor or sensory deficits. PSYCHIATRIC: Mood and affect appear normal. SKIN: No skin rash, bruise or purpuric eruption. DIAGNOSTIC/LABORATORY STUDIES A mammogram on October 13, 2017 was benign. CBC showed white count 4.4, hemoglobin 16, hematocrit 48.3 and platelet count 185,000. Chem panel normal. CEA is 3.2, which is down from 3.3. CA 15-3 is 54, up from 43, and CA 27-29 is 63.7, up from 48.9. ASSESSMENT 1. Stage IA (pT1 pN0 cM0) left breast infiltrating ductal carcinoma status post wide localization lumpectomy and sentinel lymph node biopsy done October 19, 2015 for 1 cm invasive ductal carcinoma grade 2/3. Three sentinel lymph nodes were negative for metastasis. ER/MA positive, HER2/rhett negative by immunohistochemistry. Ki-67 was low at 5.5% and p53 was low at 0.8%. Patient started treatment with Letrozole November 09, 2015, which was stopped on June 12, 2016 because of the side effects with pain and stiffness in the small joints of the hands. Patient could not afford Aromasin for co-payment and started treatment with anastrazole, Arimidex 1 mg daily July 14, 2016. Again she had stiffness on all her joints. She also had weight gain and hot flashes, and for this reason, Arimidex was stopped on June 12, 2017. The patient started Tamoxifen 20 mg daily after that, and she is tolerating tamoxifen better, but she cntsn to have weight gain. Patient started tamoxifen June 26, 2017. Her tumor marker with CA 27-29 and CA 15-3 showed rising lately. Her CA 15-3 increased from 43 to 54 and CA 27-29 increased from 48.9 to 63.7. I am planning to do a restaging workup, so I am planning to get an MRI of the brain with and without contrast and PET CT scan for further evaluation. I am planning to see the patient in a week, and further evaluation and management will depend on the results of those scans. If the scans are negative for recurrent disease, then we are going to monitor the markers again in three months from now. 2. Vitamin D deficiency. Patient currently on vitamin D supplement 3000 units daily. Continue the same dose. 3. Osteopenia of the left femoral neck, currently on vitamin D supplement. Consider repeat DEXA scan every two years. 4. Hypothyroidism, on treatment. 5. Hypertension, on treatment. 6. Gout, on prednisone and colchicine. 7. Osteoarthritis. PLAN 1. Continue tamoxifen 20 mg daily. 2. PET/CT scan. 3. MRI of the brain with and without contrast. 4. Patient to return in one week for further evaluation and management. 5. Patient is to contact us for any new concern or complaints. JAD
[~2017-12-24 10:29] MED LIST changes: +CHOL200018 PO; -CHOL200022 PO; +GADOBENATE 529MG/1ML 15ML VIAL IVP ONE; -LOSA100T67 PO; +LOSA100T69 PO; +TRAZ50TA34 PO
[2017-12-24 10:37] VITALS: BP 168/87
--- NOTE | 2017-12-24 16:15 | ONCOLOGY FOLLOW UP NOTE ---
EVENT DATE: December 24, 2017 DIAGNOSES 1. Left breast cancer. 2. Hypothyroidism. 3. Hypertension. 4. Hyperlipidemia. 5. Gout. 6. Osteoarthritis. CHIEF COMPLAINT The patient is here today for followup of her left breast cancer. ONCOLOGY HISTORY The patient is a 77-year-old postmenopausal woman. PRESENTATION Abnormal screening mammogram. DIAGNOSTIC EVALUATION Ultrasound of the left breast done on September 19, 2015 did show 7.5 mm hypoechoic space-occupying lesion nearly at 10 o'clock position of the left breast. PROCEDURES 1. Ultrasound guided left breast mass biopsy done on September 25, 2015 came back positive for infiltrating ductal carcinoma, grade II/III. 2. Wire localization lumpectomy and left sentinel lymph node biopsy done October 19, [address] Jauregui. PATHOLOGY Positive for 1 cm infiltrating ductal carcinoma, grade II/III with three negative sentinel lymph nodes. ER 99.5% positive, [place] 99.1% positive, HER2/rhett negative by immunohistochemistry (1+). Ki-67 was low at 5.5%. p53 was also low at 0.8%. TREATMENT 1. The patient started treatment with adjuvant hormonal therapy with letrozole 2.5 mg daily on November 09, 2015. 2. The patient stopped letrozole in June 2006 because of side effects including severe pain in her small joints of the hands, and she started anastrozole 1 mg daily on July 14, 2016. The patient stopped anastrozole on June 12, 2017. 3. Patient started treatment with tamoxifen 20 mg daily on June 12, 2017. HISTORY OF PRESENT ILLNESS Patient is here today for followup of her left breast cancer. She is complaining of generalized arthritis, especially of the ankles and shoulders, and weakness and fatigue, but other than that she is doing fine. She is here today to discuss the results of the re-staging, because of the rise of her tumor markers, with CA 27-29 and CA 15-3. PAST MEDICAL HISTORY 1. Hypertension. 2. Hyperlipidemia. 3. Osteoarthritis. 4. Gout. 5. Hypothyroidism. 6. Vitamin D deficiency. PAST SURGICAL HISTORY 1. In 1981 she had bilateral hysterectomy. 2. In 1991 she had back surgery. 3. In 1996 she had plantar fasciitis, right foot, surgery. 4. In 2005 she had left knee arthroplasty. 5. In October 2012, she had cataract, right eye. 6. In November 2012, she had cataract of left eye. 7. On October 05, 2015 she had ultrasound guided left breast biopsy. SOCIAL HISTORY The patient is with two sons. 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 She drinks wine and scotch occasionally. Denies any abuse of tobacco or illicit drugs. FAMILY HISTORY Negative for cancer or blood diseases. CURRENT MEDICATIONS 1. Advil at night for pain. 2. Losartan 100 mg in the morning. 3. Estradiol 2 mg in the morning. The patient was advised to quit. 4. Lasix 40 mg as needed. 5. Levothyroxine 75 mcg daily. 6. Spironolactone 25 mg half pill in the morning. 7. Tamoxifen 20 mg daily. 8. Vitamin D 5000 units daily. ALLERGIES SULFA, which causes hives. REVIEW OF SYSTEMS CONSTITUTIONAL: No appetite or weight change. No fever, chills or sweating. No recent infection. HEENT: Ears: No tinnitus or hearing problem. Nose: No nasal discharge or epistaxis. Throat: No sore throat or mouth ulcers. Eyes: No diplopia or visual changes. RESPIRATORY: No shortness of breath. No cough, expectoration or hemoptysis. CARDIOVASCULAR: No chest pain, orthopnea, or paroxysmal nocturnal dyspnea (PND). No edema. No palpitations. GASTROINTESTINAL: No nausea or vomiting. No diarrhea or constipation. No change in bowel movements. No heartburn or swallowing difficulties. No abdominal pain. No jaundice. No hematemesis, melena or rectal bleeding. GENITOURINARY: No hematuria or dysuria. MUSCULOSKELETAL: She has generalized arthritis, especially in the ankles and shoulders. NEUROLOGICAL: No tingling or numbness in the hands or feet. No headaches or convulsions. HEMATOLOGIC/LYMPHATIC: She is weak, tired and fatigued. SKIN: No skin rash or lumps. PSYCHIATRIC: No anxiety or depression. PHYSICAL EXAMINATION GENERAL: Looks stable. Well-developed, well-nourished, and in no acute distress. VITAL SIGNS: Blood pressure 168/87, pulse 73 per minute, respirations 18 per minute, temperature 96.9, pulse oximetry 94% on room air. HEENT: Head: Atraumatic. No sinus tenderness to palpation. Eyes: No icterus or conjunctivitis. Mouth and throat: No oral thrush or mucositis. NECK: Supple. No cervical or supraclavicular lymphadenopathy. LUNGS: Clear to auscultation and percussion bilaterally. HEART: Regular rate and rhythm. No gallops, murmurs, clicks or rubs. ABDOMEN: Soft and lax. No tenderness. No hepatosplenomegaly. No masses. EXTREMITIES: No cyanosis, clubbing or edema. LYMPHATICS: No peripheral lymphadenopathy. NEUROLOGICAL: Conscious, alert and oriented times three. No focal motor or sensory deficits. PSYCHIATRIC: Mood and affect appear normal. SKIN: No skin rash, bruise or purpuric eruption. 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 A PET CT scan, done on December 23, 2017 showed resolving post-treatment activity in the left breast. No evidence of local recurrent disease or metastatic disease ASSESSMENT 1. Stage IA (pT1 pN0 cM0) left breast infiltrating ductal carcinoma status post wide localization lumpectomy and sentinel lymph node biopsy done October 19, 2015 for 1 cm invasive ductal carcinoma grade 2/3. [place] lymph nodes were negative for metastasis. ER/NJ positive, HER2/rhett negative by immunohistochemistry. Ki-67 was low at 5.5% and p53 was low at 0.8%. Patient started treatment with Letrozole November 09, 2015, which was stopped on June 12, 2016 because of the side effects with pain and stiffness in the small joints of the hands. Patient could not afford Aromasin for co-payment and started treatment with anastrazole, Arimidex 1 mg daily July 14, 2016. Again she had stiffness in all her joints. She also had weight gain and hot flashes, and the patient stopped Arimidex June 12, 2017. She started Tamoxifen 20 mg daily after that, and she is tolerating tamoxifen better. Patient started tamoxifen June 26, 2017. Her tumor marker with CA 27-29 and CA 15-3 showed mild rise lately. Her CA 15-3 increased from 43 to 54 and CA 27-29 increased from 48.9 to 63.7. MRI of brain December 22, 2017 showed a focus of 1.2 cm in the left frontal area, but it is thought to be due to a vague enhancement, likely due to a venous anomaly or capillary telangiectasia other than metastasis, given that this abnormality was there on her previous scan in 2008. PET CT scan done on December 23, 2017 did not show any evidence of local, regional or systemic recurrence. I am planning to continue followup. I will continue tamoxifen 20 mg daily, and I will see her in three months with CBC, chem panel, CA 27-29 and CA 15-3. 2. Vitamin D deficiency, on vitamin D supplement 3000 units daily. 3. Osteopenia of the left femoral neck, currently on vitamin D supplement. Consider repeat DEXA scan every two years. 4. Hypothyroidism, on treatment. 5. Hypertension, on treatment. 6. Gout, on prednisone and colchicine. 7. Osteoarthritis. PLAN 1. Continue tamoxifen 20 mg daily. 2. Patient to return in three months with CBC, chem panel, CA 27-29, CA 15-3. 3. Patient is to contact us for any new concern or complaints. MTDD
[2018-01-19] MEDS ORDERED: TRAZ50TA34 PO (11:00)
[2018-02-15] MEDS ORDERED: FLU180SY11 IM (14:39)
== END 2018-03-16 ==
LOC: ONC 10:29
PROVIDERS: ATTEND Internal Medicine Hematology
DX: C50.212 Malignant neoplasm of upper-inner quadrant of left female breast (principal); E03.9 Hypothyroidism, unspecified; I10 Essential (primary) hypertension; E78.5 Hyperlipidemia, unspecified; M10.9 Gout, unspecified; M19.90 Unspecified osteoarthritis, unspecified site; R53.83 Other fatigue; R53.1 Weakness; Z79.899 Other long term (current) drug therapy; Z79.810 Long term (current) use of selective estrogen receptor modulators (SERMs)
CPT/HCPCS: 36415; 82378; 85025; 86300; G0463; 82040; 82247; 82310; 82374; 82435; 82565; 82947; 84075; 84132; 84155; 84295; 84450; 84460; 84520; 99212; A9577

== ENCOUNTER 2018-02-16 12:30 | Outpatient (RCR) | payer MEDICARE, BC ==
[2016-06-20 10:02] VITALS: BP 137/82
[~2018-02-16 12:30] MED LIST changes: +FLU180SY11 IM; -GADOBENATE 529MG/1ML 15ML VIAL IVP ONE; -LOSA100T69 PO; +LOSA100T75 PO
--- NOTE | 2018-02-16 22:16 | ONCOLOGY FOLLOW UP NOTE ---
EVENT DATE: February 16, 2018 REASON FOR VISIT Oncology surveillance clinical update. ONCOLOGY HISTORY 1. Pathologic T1b N0 M0, ER and WI receptor positive, left-sided breast carcinoma. Tumor was HER2 negative. Patient treated with a lumpectomy and sentinel lymph node biopsy on 10/19/15. 2. Patient completed external beam radiation therapy for breast conservation 01/11/16. 3. Patient initially started on Femara, then anastrozole. These were discontinued in favor of tamoxifen, which the patient is presently taking as instructed by Dr. Najera. 4. Elevation of the CA27.29 tumor marker 12/2017. A full negative workup including a PET/CT scan and MRI scan of the brain. INTERVAL HISTORY Patient was seen back in the Oncology Clinic to establish care with myself. She previously was seen by Dr. Javier. She asked if I would review her radiographic studies, and I was happy to do so on the computer monitor. Clinically, she is doing well. Denies any headaches or bone pain. No breast pain or discomfort. The patient had blood work back in December including a CBC and metabolic panel which were completely normal. She had an elevation of the CA27.29 marker at 63 with a CEA of 3.2 that may have been a false positive result as the radiographic workup was negative for any signs of tumor recurrence at that time. Dr. Najera is seeing the patient every three months. She has changed primary care to Dr. Shamika Clark. Both she and her are seeing Dr. Clark every three months roughly. She also sees Dr. Najera at that interval. Patient had a mammogram earlier this year in October. I reviewed that study and the prior studies as well, and there are no suspicious findings. Patient denies any hot flashes from the tamoxifen. She did notice initial weight gain, but that has stabilized. PAST MEDICAL HISTORY 1. Breast cancer. 2. Hypertension. 3. Hypothyroidism. 4. Osteoarthritis. 5. Gout. SURGICAL HISTORY 1. Left breast biopsy. 2. Prior spine surgery in 1991. 3. Cataract surgery. 4. Left knee arthroplasty. 5. Prior hysterectomy with ovaries left in place in 1981. SOCIAL HISTORY . Retired land surveying survey worker. She and her are in the [employer] and [employer] business. MEDICATIONS 1. Tamoxifen 20 mg a day. 2. Losartan 100 mg q.a.m. 3. Lasix 40 mg a day. 4. Levothyroxine 75 mcg q. day. 5. Spironolactone 25 mg q. day. ALLERGIES SULFA (hives). REVIEW OF SYSTEMS Denies any headaches. No cardiovascular complaints at this time. Minor fatigue. No respiratory complaints, muscle pain, or tenderness. No GI complaints. PHYSICAL EXAMINATION GENERAL: Pleasant, 77-year-old female with medium, slightly large build. VITAL SIGNS: Weight 228. BP is 127/80, pulse 79, O2 sat 93%. LUNGS: Clear bilaterally. No lymphadenopathy. BREASTS: Large pendulous breasts bilaterally. No suspicious findings on careful palpation of the right breast or the left breast. The surgical incision is well healed. Excellent cosmetic result. ABDOMEN: No gross organomegaly. NEUROLOGIC: Grossly intact. IMPRESSION AND PLAN This is a pleasant, 77-year-old female with a history of a grade 2 invasive ductal carcinoma of the left breast measuring approximately 1 cm. Tumor was strongly receptor positive, and patient was appropriately placed on tamoxifen after lumpectomy and radiotherapy. I believe she started the latter treatment in June. No signs of tumor recurrence on clinical exam or radiographic studies to date. Patient will continue to see Medical Oncology every three months, and I will see her once a year in this clinic. I told her I would typically align my visits with her mammogram date, which will be next October. I also told her that I could release her to the other providers at this time, but she feels more comfortable with two oncologists following her at least for now. All questions answered to her satisfaction over a 45-minute appointment. Greater than 35 minutes spent [id number] with patient. JEANNE
== END 2018-03-10 12:42 | disposition home or self-care (01) ==
LOC: RAON 12:30
PROVIDERS: ATTEND Nurse Practitioner Family
DX: C50.912 Malignant neoplasm of unspecified site of left female breast (principal); Z17.0 Estrogen receptor positive status [ER+]; Z92.3 Personal history of irradiation; Z79.810 Long term (current) use of selective estrogen receptor modulators (SERMs); Z79.899 Other long term (current) drug therapy
CPT/HCPCS: 99212

== ENCOUNTER 2018-03-02 10:30 | Outpatient (RCR) | payer MEDICARE, BC ==
--- NOTE | 2017-12-09 15:19 | PT PLAN OF CARE ---
Physician: Shamika Clark MD Patient is being seen: 2-3x/Week Therapist: Keisha Lorenz, PT, DPT, CLT Medical Diagnosis: Right Shoulder Pain, Bilateral Ankle Pain Treatment Diagnosis: Right Shoulder Subscapularis Strain, Bilateral Ankle Pain Date of Onset: 09/09/17 Date of Initial Evaluation: 09/09/17 Date patient was last seen: 12/09/17 Number of treatments: 16 Number of cancellations/No shows: 7 INTERVENTIONS: Manual Therapy/STM/MET Strengthening/condition Ice/Heat Range of Motion Spinal Stabilization Ultrasound Stretching Iontophoresis Neuromuscular Re-ed Closed Chain Program Electrical Stim Posture/Body mechanics Gait Trg/Balance Trg Biofeedback Home Exercise Program Mech./Manual Traction Therapeutic Activities Pelvic Floor GOALS: In 3 weeks pt will increase AROM to equal to that of the contralateral shoulder for improved mobility with ADL's. In Progress In 6 weeks pt will improve ankle strength to 5/5 B in all major planes for improved support with ambulation. In Progress In 6 weeks pt will increase IR strength to 5/5 without pain for improved function with ADL's. In Progress In 6 weeks pt will improve QuickDASH score to <19% impairment for improved function with ADL's. In Progress PATIENT'S GOAL: Decrease shoulder pain and improve function with lifting and pushing. Decrease ankle pain with walking. Status of Patient's Goals: In Progress Patient Compliance: Good Prognosis: Good Reasons for continuing therapy: Pat shows increase functional strength and mobility with pt able to perform increased community ambulation without pain in the ankle for up to 1.5 miles. Painful arc persists in the R shoulder. However, ROM prior to pain shows improvements and pt shows improved strength in all planes. Further PT is indicated to improve pt stability with ambulation on uneven surfaces as well as further improve R shoulder ROM and strength without pain. OBJECTIVE: Pt is L handed ROM: Ankle AROM: Painful in end ranges Shoulder AROM: Flexion: L 126, R 114, Abd: L 145, R 98 with pain, ER: L 80, R 75 with pain, IR: L T6, R L2 level with pain. Strength: Shoulder MMT: 5/5 B in all motions excluding R IR at 4/5 Ankle MMT: PF: R 4+/5, L 4/5, DF: 5/5 B Palpation: Pt is tender to palpation along the anterior shoulder supraspinatus tendon. Sensation: Pt denies any change in sensation in the R arm. Special Tests: Empty Can, IR lift off, Drop arm (-), Painful Arc (+) Other Objective Findings: Quick DASH disability score: 27.3% If you have any questions or concerns, please feel free to contact me at [phone]. Thank you, Keisha Lorenz, PT, DPT, CLT MTDD
[~2018-03-02 10:30] MED LIST changes: +LOSA100T69 PO; -LOSA100T75 PO
== END 2018-03-09 ==
LOC: PT 10:30
PROVIDERS: ATTEND Family Medicine
DX: M25.511 Pain in right shoulder (principal); M25.571 Pain in right ankle and joints of right foot; M25.572 Pain in left ankle and joints of left foot

== ENCOUNTER 2018-03-25 10:13 | Outpatient (RCR) | payer MEDICARE, BC ==
[2018-03-23 09:05] VITALS: BP 141/67
[2018-03-23 09:29] LABS: PLATELET COUNT, AUTOMATED 174 K/uL (150-450)
[~2018-03-25 10:13] MED LIST changes: -LOSA100T69 PO; +LOSA100T75 PO
[2018-03-25 10:32] VITALS: BP 143/82
--- NOTE | 2018-03-25 16:02 | [facility] ONCOLOGY NOTE ---
EVENT DATE: March 25, 2018 DIAGNOSES 1. Left breast cancer. 2. Hypothyroidism. 3. Hypertension. 4. Hyperlipidemia. 5. Gout. 6. Osteoarthritis. CHIEF COMPLAINT The patient is here today for followup of her breast cancer. ONCOLOGY HISTORY The patient is a 77-year-old postmenopausal woman. PRESENTATION Abnormal screening mammogram. DIAGNOSTIC EVALUATION Ultrasound of the left breast done on September 19, 2015, did show 7.5 mm hypoechoic space-occupying lesion nearly at 10 o'clock position of the left breast. PROCEDURES 1. Ultrasound-guided left breast mass biopsy done on September 25, 2015, came back positive for infiltrating ductal carcinoma, grade 2/3. 2. Wire localization lumpectomy and left sentinel lymph node biopsy done October 19, 2015, by Dr. Jauregui. PATHOLOGY Positive for 1 cm infiltrating ductal carcinoma, grade 2/3 with three negative sentinel lymph nodes. ER 99.5% positive, [place] 99.1% positive, HER2/rhett negative by immunohistochemistry (1+). Ki-67 was low at 5.5%. p53 was also low at 0.8%. TREATMENT 1. The patient started treatment with adjuvant hormonal therapy with letrozole 2.5 mg daily on November 09, 2015. 2. The patient stopped letrozole in June 2006 because of side effects including severe pain in her small joints of the hands, and she started anastrozole 1 mg daily on July 14, 2016. The patient stopped anastrozole on June 12, 2017. 3. Patient started treatment with tamoxifen 20 mg daily on June 12, 2017. HISTORY OF PRESENT ILLNESS Patient is here today for followup of her left breast cancer. She is doing fine currently. She is complaining of some hot flashes. She has residual dry cough from her upper respiratory tract infection she had recently. She is weak, tired, and fatigued, but other than that, she is really doing very well. PAST MEDICAL HISTORY 1. Hypertension. 2. Hyperlipidemia. 3. Osteoarthritis. 4. Gout. 5. Hypothyroidism. 6. Vitamin D deficiency. PAST SURGICAL HISTORY 1. In 1981, she had hysterectomy. 2. In 1991, she had back surgery. 3. In 1996, she had plantar fasciitis, right foot, surgery. 4. In 2005, she had left knee arthroplasty. 5. In October 2012, she had cataract of right eye. 6. In November 2012, she had cataract of left eye. 7. On October 05, 2015, she had ultrasound-guided left breast biopsy. SOCIAL HISTORY The patient is with two sons. 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 She drinks wine and scotch occasionally. Denies any abuse of tobacco or illicit drugs. FAMILY HISTORY Negative for cancer or blood diseases. CURRENT MEDICATIONS 1. Advil at night for pain. 2. Losartan 100 mg in the morning. 3. Estradiol 2 mg in the morning. The patient was advised to quit. 4. Lasix 40 mg as needed. 5. Levothyroxine 75 mcg daily. 6. Spironolactone 25 mg half pill in the morning. 7. Tamoxifen 20 mg daily. 8. Vitamin D 5000 units daily. ALLERGIES SULFA which causes hives. REVIEW OF SYSTEMS CONSTITUTIONAL: Patient has hot flashes. No appetite or weight change. No fever or chills. No recent infection. HEENT: Ears: No tinnitus or hearing problem. Nose: No nasal discharge or epistaxis. Throat: No sore throat or mouth ulcers. Eyes: No diplopia or visual changes. RESPIRATORY: No shortness of breath. She has a dry cough. No expectoration or hemoptysis. CARDIOVASCULAR: No chest pain, orthopnea, or paroxysmal nocturnal dyspnea (PND). No edema. No palpitations. GASTROINTESTINAL: No nausea or vomiting. No diarrhea or constipation. No change in bowel movements. No heartburn or swallowing difficulties. No abdominal pain. No jaundice. No hematemesis, melena or rectal bleeding. GENITOURINARY: No hematuria or dysuria. MUSCULOSKELETAL: No pain in the muscles, joints or bones. NEUROLOGICAL: No tingling or numbness in the hands or feet. No headaches or convulsions. HEMATOLOGIC/LYMPHATIC: No bleeding or easy bruising. She is weak, tired, and fatigued. No enlarged lymph nodes. SKIN: No skin rash or lumps. PSYCHIATRIC: No anxiety or depression. PHYSICAL EXAMINATION GENERAL: Looks stable. Well developed, well nourished, and in no acute distress. VITAL SIGNS: Blood pressure 143/82, pulse 71 per minute, respirations 16 per minute, temperature 97.1, pulse oximetry 90% on room air. HEENT: Head: Atraumatic. No sinus tenderness to palpation. Eyes: No icterus or conjunctivitis. Mouth and throat: No oral thrush or mucositis. NECK: Supple. No cervical or supraclavicular lymphadenopathy. LUNGS: Clear to auscultation and percussion bilaterally. HEART: Regular rate and rhythm. No gallops, murmurs, clicks, or rubs. ABDOMEN: Soft and lax. No tenderness. No hepatosplenomegaly. No masses. EXTREMITIES: No cyanosis, clubbing, or edema. LYMPHATICS: No peripheral lymphadenopathy. NEUROLOGICAL: Conscious, alert, and oriented times three. No focal motor or sensory deficits. PSYCHIATRIC: Mood and affect appear normal. SKIN: No skin rash, bruise, or purpuric eruption. DIAGNOSTIC/LABORATORY STUDIES CBC showed white count 3.8, hemoglobin 15, hematocrit 45.3, platelets 174,000. Chem panel totally normal except AST 43. CA15-3 is 52, down from 54, and CA27.29 is 55.7, down from 63.7. ASSESSMENT 1. Stage IA (pT1 pN0 cM0) left breast infiltrating ductal carcinoma, status post wide localization lumpectomy and sentinel lymph node biopsy done October 19, 2015, for 1 cm invasive ductal carcinoma grade 2/3. [place] lymph nodes were negative for metastasis. ER/MS positive, HER2/rhett negative by immunohistochemistry. Ki-67 was low at 5.5%, and p53 was low at 0.8%. Patient started treatment with letrozole November 09, 2015, which was stopped on June 12, 2016, because of the side effects with pain and stiffness of the small joints of the hands. Patient could not afford Aromasin for co-payment and started treatment with anastrazole, Arimidex 1 mg daily July 14, 2016. Again, she had stiffness in all her joints, weight gain, and hot flashes, so the patient stopped Arimidex June 12, 2017. She started tamoxifen 20 mg daily after that, and she is tolerating tamoxifen better. She started therapy with tamoxifen on the June. Tumor marker with CA27.29 and CA15-3 showed elevation recently, so the patient had an MRI of the brain December 22, 2017, which showed 1.2 cm focus in the left frontal area, thought to be due to weak enhancement by a venous anomaly or capillary telangiectasia other than metastasis given that this abnormality was there since head scan in 2008. PET/CT scan December 23, 2017, did not show any evidence of local, regional, or systemic metastasis. Her tumor markers currently are going down. Her CA15-3 dropped from 54 to 52, and CA27.29 dropped from 63.7 to 55.7. I plan to continue followup. I will see her again in three months with CBC, chemistry panel, CA27.29, CEA, and CA15-3. 2. Vitamin D deficiency, on vitamin D supplement 3000 units daily. 3. Osteopenia of the left femoral neck, currently on vitamin D supplement. Consider DEXA scan every two years. 4. Hypothyroidism, on supplement. 5. Hypertension, on treatment. 6. Gout, on prednisone and colchicine. 7. Osteoarthritis. PLAN 1. Continue tamoxifen 20 mg daily. 2. Patient to return in three months with CBC, chem panel, CEA, CA27.29, and CA15-3. 3. Patient is to contact us for any new concerns or complaints. JEANNE
[2018-04-12] MEDS ORDERED: LOSA100T75 PO (09:50)
[2018-05-24] MEDS ORDERED: FLUT16SP19 NS (09:28)
[2018-05-24] MEDS ORDERED: CHOL10005 PO (09:43)
== END 2018-06-17 ==
LOC: ONC 10:13
PROVIDERS: ATTEND Internal Medicine Hematology
DX: C50.212 Malignant neoplasm of upper-inner quadrant of left female breast (principal); E03.9 Hypothyroidism, unspecified; I10 Essential (primary) hypertension; E78.5 Hyperlipidemia, unspecified; M10.9 Gout, unspecified; M19.90 Unspecified osteoarthritis, unspecified site; R53.83 Other fatigue; R53.1 Weakness; Z79.899 Other long term (current) drug therapy; Z79.810 Long term (current) use of selective estrogen receptor modulators (SERMs)
CPT/HCPCS: 36415; 85025; 86300; G0463; 82040; 82247; 82310; 82374; 82435; 82565; 82947; 84075; 84132; 84155; 84295; 84450; 84460; 84520; 99212

== ENCOUNTER 2018-04-29 09:45 | Outpatient (RCR) | payer MEDICARE, BC ==
--- NOTE | 2018-03-18 13:48 | PT PLAN OF CARE ---
Physician: Shamika Clark MD Patient is being seen: 2-3x/wk Therapist: Keisha Lorenz, PT, DPT, CLT & Ladan Flores, SPT Medical Diagnosis: Right Shoulder Pain, Bilateral Ankle Pain Treatment Diagnosis: Right Shoulder Subscapularis Strain, Bilateral Ankle Pain Date of Onset: 09/09/17 Date of Initial Evaluation: 09/09/17 Date patient was last seen: 03/18/18 Number of treatments: 28 Number of cancellations/No shows: 8 INTERVENTIONS: Manual Therapy/STM/MET Strengthening/condition Ice/Heat Range of Motion Spinal Stabilization Ultrasound Stretching Iontophoresis Neuromuscular Re-ed Closed Chain Program Electrical Stim Posture/Body mechanics Gait Trg/Balance Trg Biofeedback Home Exercise Program Mech./Manual Traction Therapeutic Activities Pelvic Floor GOALS: In 3 weeks pt will increase AROM to equal to that of the contralateral shoulder for improved mobility with ADL's. In 6 weeks pt will improve ankle strength to 5/5 B in all major planes for improved support with ambulation. In 6 weeks pt will increase IR strength to 5/5 without pain for improved function with ADL's. In 6 weeks pt will improve QuickDASH score to < 19% impairment for improved function with ADL's. PATIENT'S GOAL: Decrease shoulder pain and improve function with lifting and pushing. Decrease ankle pain with walking. Status of Patient's Goals: In Progress Patient Compliance: Good Prognosis: Good Reasons for continuing therapy: Pt continues to show improvements in R shoulder ROM and MMT. Pt has been sick hindering her ability to come to physical therapy but pt continues to do HEP to continue to work on shoulder strength. Pt's ankle pain continues to decrease and the main focus is now on the R shoulder. Further PT is indicated to continue to improve pt's R shoulder strength and ROM as well as LE strength to improve function with ADL's. Posture: ROM: Ankle AROM: Painful in end ranges Shoulder AROM: Flexion: L 151, R 148, Abd: L 140, R 123, ER: L 90, R 62, IR: L T6, R T9 level. Strength: Shoulder MMT (L, R): shoulder flex: 5, 4, ext: 5,5, Abd: 4, 3+, ER: 4, 4-, IR: 5, 4+ Ankle MMT (L, R): PF: 5-, 4+, DF: 5, 5 Palpation: Pt is tender to palpation along the anterior shoulder supraspinatus tendon. Special Tests: Empty Can, IR lift off, Drop arm (-), Painful Arc (+) Other Objective Findings: Quick DASH: 22.7% impairment If you have any questions or concerns, please feel free to contact me at [phone]. Keisha Lorenz, PT, DPT, CLT Ladan Flores, SPT This Physical Therapist was present for the entire physical therapy session directing the services, making the skilled judgement, and was not engaged in treating another patient or doing another task at the same time as the treatment session. JAD
== END 2018-04-29 18:00 | disposition home or self-care (01) ==
LOC: PT 09:45
PROVIDERS: ATTEND Family Medicine
DX: M25.511 Pain in right shoulder (principal); M25.571 Pain in right ankle and joints of right foot

== ENCOUNTER 2018-06-25 13:00 | Outpatient (RCR) | payer MEDICARE, BC ==
[2018-06-21 08:48] VITALS: BP 148/95
[2018-06-21 09:00] LABS: PLATELET COUNT, AUTOMATED 158 K/uL (150-450)
[~2018-06-25 13:00] MED LIST changes: +FLUT16SP19 NS; -TRAZ50TA34 PO; +TRAZ50TA52 PO
[2018-06-25 14:17] VITALS: BP 140/83
--- NOTE | 2018-06-26 07:20 | [facility] ONCOLOGY NOTE ---
EVENT DATE: June 25, 2018 DIAGNOSES 1. Left breast cancer. 2. Hypothyroidism. 3. Hypertension. 4. Hyperlipidemia. 5. Gout. 6. Osteoarthritis. CHIEF COMPLAINT The patient is here today for followup of her breast cancer. ONCOLOGY HISTORY The patient is a 77-year-old postmenopausal woman. PRESENTATION Abnormal screening mammogram. DIAGNOSTIC EVALUATION Ultrasound of the left breast done on September 19, 2015, did show 7.5 mm hypoechoic space-occupying lesion nearly at 10 o'clock position of the left breast. PROCEDURES 1. Ultrasound-guided left breast mass biopsy done on September 25, 2015, came back positive for infiltrating ductal carcinoma, grade 2/3. 2. Wire localization lumpectomy and left sentinel lymph node biopsy done October 19, 2015, by Dr. Jauregui. PATHOLOGY Positive for 1 cm infiltrating ductal carcinoma, grade 2/3 with three negative sentinel lymph nodes. ER 99.5% positive, KS 99.1% positive, HER2/rhett negative by immunohistochemistry (1+). Ki-67 was low at 5.5%. p53 was also low at 0.8%. TREATMENT 1. The patient started treatment with adjuvant hormonal therapy with letrozole 2.5 mg daily on November 09, 2015. 2. The patient stopped letrozole in June 2006 because of side effects including severe pain in her small joints of the hands, and she started anastrozole 1 mg daily on July 14, 2016. The patient stopped anastrozole on June 12, 2017. 3. Patient started treatment with tamoxifen 20 mg daily on June 12, 2017. HISTORY OF PRESENT ILLNESS Patient is here today for followup of her left breast cancer. She is doing fine currently and apart from having mild fatigue patient does not have any other complaints. PAST MEDICAL HISTORY 1. Hypertension. 2. Hyperlipidemia. 3. Osteoarthritis. 4. Gout. 5. Hypothyroidism. 6. Vitamin D deficiency. PAST SURGICAL HISTORY 1. In 1981, she had hysterectomy. 2. In 1991, she had back surgery. 3. In 1996, she had plantar fasciitis, right foot, surgery. 4. In 2005, she had left knee arthroplasty. 5. In October 2012, she had cataract of right eye. 6. In November 2012, she had cataract of left eye. 7. On October 05, 2015, she had ultrasound-guided left breast biopsy. SOCIAL HISTORY The patient is with two sons. 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 She drinks wine and scotch occasionally. Denies any abuse of tobacco or illicit drugs. FAMILY HISTORY Negative for cancer or blood diseases. CURRENT MEDICATIONS 1. Advil at night for pain. 2. Losartan 100 mg in the morning. 3. Estradiol 2 mg in the morning. The patient was advised to quit. 4. Lasix 40 mg as needed. 5. Levothyroxine 75 mcg daily. 6. Spironolactone 25 mg half pill in the morning. 7. Tamoxifen 20 mg daily. 8. Vitamin D 5000 units daily. ALLERGIES SULFA which causes hives. REVIEW OF SYSTEMS CONSTITUTIONAL: Patient has hot flashes. No appetite or weight change. No fever or chills. No recent infection. HEENT: Ears: No tinnitus or hearing problem. Nose: No nasal discharge or epistaxis. Throat: No sore throat or mouth ulcers. Eyes: No diplopia or visual changes. RESPIRATORY: No shortness of breath. She has a dry cough. No expectoration or hemoptysis. CARDIOVASCULAR: No chest pain, orthopnea, or paroxysmal nocturnal dyspnea (PND). No edema. No palpitations. GASTROINTESTINAL: No nausea or vomiting. No diarrhea or constipation. No change in bowel movements. No heartburn or swallowing difficulties. No abdominal pain. No jaundice. No hematemesis, melena or rectal bleeding. GENITOURINARY: No hematuria or dysuria. MUSCULOSKELETAL: No pain in the muscles, joints or bones. NEUROLOGICAL: No tingling or numbness in the hands or feet. No headaches or convulsions. HEMATOLOGIC/LYMPHATIC: She is weak, tired and fatigued. SKIN: No skin rash or lumps. PSYCHIATRIC: No anxiety or depression. PHYSICAL EXAMINATION GENERAL: Looks stable. Well developed, well nourished, and in no acute distress. VITAL SIGNS: Blood pressure 140/83, pulse 73 per minute, respirations 14 per minute, temperature 97, pulse oximetry 93% on room air. HEENT: Head: Atraumatic. No sinus tenderness to palpation. Eyes: No icterus or conjunctivitis. Mouth and throat: No oral thrush or mucositis. NECK: Supple. No cervical or supraclavicular lymphadenopathy. LUNGS: Clear to auscultation and percussion bilaterally. HEART: Regular rate and rhythm. No gallops, murmurs, clicks, or rubs. ABDOMEN: Soft and lax. No tenderness. No hepatosplenomegaly. No masses. EXTREMITIES: No cyanosis, clubbing, or edema. LYMPHATICS: No peripheral lymphadenopathy. NEUROLOGICAL: Conscious, alert, and oriented times three. No focal motor or sensory deficits. PSYCHIATRIC: Mood and affect appear normal. SKIN: No skin rash, bruise, or purpuric eruption. DIAGNOSTIC/LABORATORY STUDIES CBC showed white count 3.7, hemoglobin 15.3, hematocrit 45.8, platelets 158,000 and ANC 1.3. Chem panel totally normal except chloride 109. CA15-3 is 40, down from 52. CA27.29 is 41.7, down from 55.7 and CEA was 3, which is down from 3.2 ASSESSMENT 1. Stage IA (pT1 pN0 cM0) left breast infiltrating ductal carcinoma, status post wide localization lumpectomy and sentinel lymph node biopsy done October 19, 2015, for 1 cm invasive ductal carcinoma grade 2/3. [place] lymph nodes were negative for metastasis. ER/KS positive, HER2/rhett negative by immunohistochemistry. Ki-67 was 5.5%, and p53 was low at 0.8%. Patient started treatment with letrozole on November 09, 2015, which was stopped on June 12, 2016, because of the side effects with pain and stiffness of the small joints of the hands. Patient could not afford Aromasin for co-payment and started treatment with anastrazole, Arimidex 1 mg daily July 14, 2016. Again, she had stiffness in all her joints, weight gain, and hot flashes, so the patient stopped Arimidex June 12, 2017. She started tamoxifen 20 mg daily after that and she is tolerating the treatment well so far. She started tamoxifen on June 26, 2017. 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 PET/CT scan December 23, 2017, did not show any evidence of local, regional or systemic metastasis. Her tumor markers currently are trending down currently. Her CA15-3 dropped from 52 to 40 and CA27.29 dropped from 55.7 to 41.7 and CEA dropped from 3.2 to 3 currently. I am planning to continue followup. I will see her again in three months with CBC, chemistry panel, CEA, CA27.29 and CA15-3. 2. Vitamin D deficiency, on vitamin D supplement 3000 units daily. 3. Osteopenia of the left femoral neck, currently on vitamin D supplement. I will consider DEXA scan in the future and possible treatment with Prolia if there is evidence of significant osteopenia or osteoporosis. 4. Hypothyroidism, on supplement. 5. Hypertension, on treatment. 6. Osteoarthritis. 7. Gout, on prednisone and colchicine. PLAN 1. Continue tamoxifen 20 mg daily. 2. Patient to return in three months with CBC, chem panel, CEA, CA27.29 and CA15-3. 3. Patient is to contact us for any new concerns or complaints. JAD
[2018-07-13] MEDS ORDERED: TRAZ50TA52 PO (15:51)
== END 2018-09-16 ==
LOC: ONC 13:00
PROVIDERS: ATTEND Internal Medicine Hematology
DX: C50.212 Malignant neoplasm of upper-inner quadrant of left female breast (principal); E03.9 Hypothyroidism, unspecified; I10 Essential (primary) hypertension; E78.5 Hyperlipidemia, unspecified; M10.9 Gout, unspecified; E55.9 Vitamin D deficiency, unspecified; Z79.899 Other long term (current) drug therapy
CPT/HCPCS: 36415; 82378; 85025; 86300; G0463; 82040; 82247; 82310; 82374; 82435; 82565; 82947; 84075; 84132; 84155; 84295; 84450; 84460; 84520; 99212

== ENCOUNTER → 2018-09-30 | Outpatient (CLI) | payer MEDICARE, BC | LOC: LAB 09:42 | PROVIDERS: ATTEND Family Medicine | DX: I10 Essential (primary) hypertension (principal); E55.9 Vitamin D deficiency, unspecified; M10.9 Gout, unspecified; E03.9 Hypothyroidism, unspecified | CPT/HCPCS: 36415; 82306; 84443; 84550 ==